=== PATIENT | male | born 1980 | race Caucasian/White ===

== ENCOUNTER 2016-10-20 13:54 | Emergency (ER) | payer OTHER ==
[2016-10-20 14:23] VITALS: BP 118/64; PULSE 72; TEMP 98.3; BMI 25.8
--- NOTE | 2016-10-20 14:26 | PDOC ---
Rapid Medical Evaluation Time Seen by Provider: 10/20/16 14:19 Medical Evaluation: Allergies Allergy/AdvReac Type Severity Reaction Status Date / Time No Known Allergies Allergy Verified 10/19/16 22:11 10/20/16 14:19 I have performed a brief in-person evaluation of this patient. Mr. Apodaca is a 36 yo M with a history of bipolar d/o and seizures who presents to the ER via EMS with a complaint of constipation. Last bowel movement 1 week ago. He tells me that he took a laxative which did not help. Denies pain initially but then said he called the ambulance because he started having pain? Currently he has no pain. Pt states this has not happened to him before. He has not changed his medications. He has not been drinking water. Pt has had no abdominal surgeries (had something removed from the skin on his left abdomen) Pertinent physical exam findings: Abd soft, non distended, non tender to palpation The patient will proceed to [facility] for further evaluation. 10/20/16 14:27
--- NOTE | 2016-10-20 15:51 | PDOC ---
History of Present Illness - General Chief Complaint: Constipation Stated Complaint: CONSTIPATION Time Seen by Provider: 10/20/16 14:19 History Source: Patient Exam Limitations: No Limitations - History of Present Illness Initial Comments: 10/20/16 15:46 Patient is well-known to this emergency department as he has had 2 previous admissions in the past 3 days for multiple complaints. Yesterday he was thoroughly evaluated for complaints of constipation found to have no stool in his abdomen per radiology, and also PCP positive with tox screen. Patient came back today to emergency department with complaints of constipation. Denies fever , nausea vomiting, denies any problems with urination. Admits to being homeless , and was kicked out of his house by his parents past week. Admits to use of PCP 1 week ago but denies any further drug use. is bipolar and reports the Depakote is what he uses for his medications, otherwise is not taking any other psychiatric medications. With further evaluation and discussion about lifestyle and living arrangements, is currently staying with his girlfriend which she has available to stay with currently. has not been eating well, and not drinking enough water. Occurred: reports: yesterday Severity: reports: mild, moderate Past History - Travel Traveled outside of the country in the last 30 days: No Close contact w/someone who was outside of country & ill: No - Past Medical History Allergies/Adverse Reactions: Allergies Allergy/AdvReac Type Severity Reaction Status Date / Time No Known Allergies Allergy Verified 10/20/16 14:23 Home Medications: Ambulatory Orders Divalproex *ER* [Depakote *ER* -] 500 mg PO BID 06/18/16 Psychiatric Problems: Yes (bipolar depression) Seizures: Yes - Surgical History Abdominal Surgery: No (GROWTH REMOVED) - Immunization History Immunization Up to Date: Yes - Psycho/Social/Smoking Cessation Hx Anxiety: No Suicidal Ideation: No Smoking Status: Yes Smoking History: Never smoked Have you smoked in the past 12 months: Yes Number of Cigarettes Smoked Daily: 1 Cigars Per Day: 0 Information on smoking cessation initiated: No 'Breaking Loose' booklet given: 10/14/16 Hx Alcohol Use: No Drug/Substance Use Hx: No Substance Use Type: None, Marijuana Hx Substance Use Treatment: No Review of Systems - Review of Systems Able to Perform ROS?: Yes Is the patient limited Japanese proficient: Yes Constitutional: Yes: Symptoms Reported, See HPI, Malaise. No: Fever, Loss of Appetite, Weakness HEENTM: No: Symptoms Reported Respiratory: No: Symptoms reported ABD/GI: Yes: Symptoms Reported, See HPI, Constipated : No: Symptoms Reported Integumentary: Yes: Symptoms Reported All Other Systems: Reviewed and Negative *Physical Exam - Vital Signs Last Vital Signs Temp Pulse Resp BP Pulse Ox 98.3 F 72 16 118/64 98 10/20/16 14:19 10/20/16 14:19 10/20/16 14:19 10/20/16 14:19 10/20/16 14:19 - Physical Exam General Appearance: Yes: Nourished, Appropriately Dressed. No: Apparent Distress HEENT: positive: ARTHUR, Normal ENT Inspection, TMs Normal, Pharynx Normal Neck: positive: Supple. negative: Lymphadenopathy (R), Lymphadenopathy (L) Respiratory/Chest: positive: Lungs Clear, Normal Breath Sounds Gastrointestinal/Abdominal: positive: Normal Bowel Sounds, Soft. negative: Tender, Protuberent, Distended, Guarding, Rebound Extremity: positive: Normal Capillary Refill, Normal Inspection, Normal Range of Motion Integumentary: positive: Normal Color, Dry, Warm Neurologic: positive: improvement leader II-XII NML intact, Fully Oriented, Alert, Normal Mood/ Affect, Normal Response, Motor Strength 5/5 Progress Note - Progress Note Progress Note: With further discussion patient admits with appreciate assistance with home arrangements and transport to his girlfriend's house. call worker person Emma, notified woke him to discuss prison possibilities with patient. Will discharge patient with fleets enema, encouragement to increase fluid and fiber in his diet and follow-up with PMD *DC/Admit/Observation/Transfer Diagnosis at time of Disposition: Patient left before treatment completed Constipation Qualifiers: Constipation type: unspecified constipation type Qualified Code(s): K59.00 - Constipation, unspecified - Discharge Dispostion Disposition: HOME Condition at time of disposition: Stable Admit: No - Patient Instructions Additional Instructions: Rest, drink lots of fluids May continue use of mild laxative Follow-up with private physician as needed
== END 2016-10-20 16:34 | disposition left against medical advice (07) ==
LOC: JERFT 13:54
DX: K59.00 Constipation, unspecified (principal); Z53.21 Procedure and treatment not carried out due to patient leaving prior to being seen by health care provider; F31.9 Bipolar disorder, unspecified; F17.210 Nicotine dependence, cigarettes, uncomplicated
CPT/HCPCS: 99281-25

== ENCOUNTER 2016-12-19 15:18 | Emergency (ER) | payer OTHER ==
[2016-12-19 15:41] VITALS: BP 111/68; PULSE 76; TEMP 98.6; BMI 25.8
--- NOTE | 2016-12-19 15:51 | PDOC ---
History of Present Illness - General History Source: Patient Exam Limitations: No Limitations - History of Present Illness Initial Comments: CHIEF COMPLAINT: HISTORY OF PRESENT ILLNESS: Vital signs on arrival are within normal limits. REVIEW OF SYSTEMS: GENERAL/CONSTITUTIONAL: Subjective fever/chills. No weakness. No weight change. GENITOURINARY: No dysuria, frequency, or change in urination. MUSCULOSKELETAL: No joint or muscle swelling or pain. No neck or back pain. SKIN: No rash or easy bruising. NEUROLOGIC: No headache, vertigo, loss of consciousness, or loss of sensation. PHYSICAL EXAM: VITAL_SIGNS: within normal limits GENERAL_APPEARANCE: alert, cooperative, mild obvious discomfort. MENTAL_STATUS: speech clear, oriented X 3, responds appropriately to questions. NEURO: motor intact and sensory intact in injured extremity. EXTREMITIES: good pulse in injured extremity, affected area on extremity has mild erythema, mild swelling, mild tenderness and no abrasions\lacerations. SKIN: warm, dry, good color. <Emily Blanchard - Last Filed: 12/19/16 15:49> - General History Source: Patient Exam Limitations: No Limitations - History of Present Illness Initial Comments: 12/19/16 16:08 <Kourtney Rolle - Last Filed: 12/19/16 17:00> - General Chief Complaint: Injury Stated Complaint: INJURY/ POSSIBLE INFECTED Time Seen by Provider: 12/19/16 15:48 Past History - Past Medical History Psychiatric Problems: Yes (bipolar depression) Seizures: Yes - Surgical History Abdominal Surgery: Yes (GROWTH REMOVED) - Immunization History Immunization Up to Date: Yes - Psycho/Social/Smoking Cessation Hx Anxiety: No Suicidal Ideation: No Smoking Status: Yes Smoking History: Current every day smoker Have you smoked in the past 12 months: Yes Number of Cigarettes Smoked Daily: 5 Cigars Per Day: 0 Information on smoking cessation initiated: No 'Breaking Loose' booklet given: 10/14/16 Hx Alcohol Use: No Drug/Substance Use Hx: No Substance Use Type: None, Marijuana Hx Substance Use Treatment: No <Emily Blanchard - Last Filed: 12/19/16 15:49> <Kourtney Rolle - Last Filed: 12/19/16 17:00> - Past Medical History Allergies/Adverse Reactions: Allergies Allergy/AdvReac Type Severity Reaction Status Date / Time No Known Allergies Allergy Verified 12/19/16 15:37 Home Medications: Ambulatory Orders NK [No Known Home Medication] 12/19/16 *Physical Exam - Vital Signs Last Vital Signs Temp Pulse Resp BP Pulse Ox 98.6 F 76 19 111/68 97 12/19/16 15:37 12/19/16 15:37 12/19/16 15:37 12/19/16 15:37 12/19/16 15:37 <Emily Blanchard - Last Filed: 12/19/16 15:49> - Vital Signs Last Vital Signs Temp Pulse Resp BP Pulse Ox 98.6 F 76 19 111/68 97 12/19/16 15:37 12/19/16 15:37 12/19/16 15:37 12/19/16 15:37 12/19/16 15:37 - Physical Exam General Appearance: Yes: Nourished, Appropriately Dressed, Apparent Distress, Mild Distress HEENT: positive: ARTHUR, Normal ENT Inspection, TMs Normal, Pharynx Normal Neck: positive: Supple. negative: Tender Respiratory/Chest: positive: Lungs Clear Gastrointestinal/Abdominal: positive: Tender, Soft Musculoskeletal: negative: Normal Inspection Extremity: positive: Normal Capillary Refill, Normal Range of Motion ( tenderness to snuffbox, ) Integumentary: positive: Normal Color, Warm, Other (superficial abrasion to thenar eminance ) Neurologic: positive: coagulant dipper II-XII NML intact, Fully Oriented, Alert, Normal Mood/ Affect, Normal Response, Motor Strength 5/5 <Kourtney Rolle - Last Filed: 12/19/16 17:00> Progress Note - Progress Note Progress Note: Wrist sprain, Ortho-Glass splint placed in thumb spica secondary to snuffbox pain and will follow-up with orthopedist <Kourtney Rolle - Last Filed: 12/19/16 17:00> Medical Decision Making - Medical Decision Making A/P: <Emily Blanchard - Last Filed: 12/19/16 15:49> *DC/Admit/Observation/Transfer <Emily Blanchard - Last Filed: 12/19/16 15:49> - Discharge Dispostion Admit: No <Kourtney Rolle - Last Filed: 12/19/16 17:00> Diagnosis at time of Disposition: Sprain of hand, left Qualifiers: Encounter type: initial encounter Qualified Code(s): S63.92XA - Sprain of unspecified part of left wrist and hand, initial encounter - Discharge Dispostion Disposition: HOME Condition at time of disposition: Stable - Referrals Referrals: Jc Jang [Primary Care Provider] - Karthik Merrill MD [Staff Physician] - - Patient Instructions Printed Discharge Instructions: Wrist Sprain Additional Instructions: rest, Elevate, Ice to area to reduce swelling Sling to keep elevated Ibuprofen 2 tabs every 6 hours for pain and swelling Call and make appointment with ORTHOPEDIST this week for re-evaluation. - Post Discharge Activity Work/School Note: Back to Work
== END 2016-12-19 17:05 | disposition home or self-care (01) ==
LOC: JERFT 15:18
PROC: 2W3FX1Z Immobilization of Left Hand using Splint (ICD-10-PCS; principal; 2016-12-19)
DX: S63.8X2A Sprain of other part of left wrist and hand, initial encounter (principal); F31.9 Bipolar disorder, unspecified; W19.XXXA Unspecified fall, initial encounter; Y93.89 Activity, other specified; Y92.89 Other specified places as the place of occurrence of the external cause
CPT/HCPCS: 29125; 73130-TC-LT; 99282-25

== ENCOUNTER 2017-02-15 11:55 | Inpatient (IN) | payer OTHER ==
[2017-02-15 15:34] VITALS: BMI 24.3
--- NOTE | 2017-02-15 16:18 | HP ---
Admission ROS S - [facility] Chief Complaint: i need help to come in for rehab from [facility] marijuana Allergies/Adverse Reactions: Allergies Allergy/AdvReac Type Severity Reaction Status Date / Time No Known Allergies Allergy Verified 02/15/17 16:10 History of Present Illness: this 37 years old male with pcp and marijuana dependence,seeking rehab,last treatment in [place] 8 years ago nicotine dependence seizure disorder last 11/22 bipolar disorder no significant period of sobriety asthma Exam Limitations: No Limitations - Ebola screening Have you traveled outside of the country in the last 21 days: No Have you had contact with anyone from an Ebola affected area: No Have you been sick,other than usual withdrawal symptoms: No - Review of Systems Constitutional: No Symptoms Reported EENT: reports: No Symptoms Reported Respiratory: reports: No Symptoms reported, Other (asthma) Cardiac: reports: No Symptoms Reported GI: reports: No Symptoms Reported : reports: No Symptoms Reported Musculoskeletal: reports: No Symptoms Reported Integumentary: reports: No Symptoms Reported Neuro: reports: No Symptoms reported Endocrine: reports: No Symptoms Reported Hematology: reports: No Symptoms Reported Psychiatric: reports: Judgement Intact, Anxious, Depressed Patient History - Patient Medical History Hx Anemia: No Hx Asthma: Yes (on albuterol inhaler) Hx Chronic Obstructive Pulmonary Disease (COPD): No Hx Cancer: No Hx Cardiac Disorders: No Hx Congestive Heart Failure: No Hx Hypertension: No Hx Hypercholesterolemia: No Hx Pacemaker: No HX Cerebrovascular Accident: No Hx Seizures: Yes (last 11/22) Hx Dementia: No Hx Diabetes: No Hx Gastrointestinal Disorders: No Hx Liver Disease: No Hx Genitourinary Disorders: No Hx Sexually Transmitted Disorders: No Hx Renal Disease (ESRD): No Hx Thyroid Disease: No Hx Human Immunodeficiency Virus (HIV): No (last 09/24) Hx Hepatitis C: No Hx Depression: No Hx Suicide Attempt: No Hx Bipolar Disorder: No Hx Schizophrenia: No Other Medical History: no suicidal,no homicidal - Patient Surgical History Hx Abdominal Surgery: Yes (GROWTH REMOVED left lumbal are) - PPD History Documented Results: Negative w/o proof Implanted On Prior [facility] Admission?: No PPD to be Administered?: Yes - Smoking Cessation Smoking history: Current every day smoker Have you smoked in the past 12 months: Yes Aproximately how many cigarettes per day: 5 Cigars Per Day: 0 Hx Chewing Tobacco Use: No Initiated information on smoking cessation: Yes 'Breaking Loose' booklet given: 02/15/17 - Substance & Tx. History Hx Alcohol Use: No Hx Substance Use: Yes Substance Use Type: Marijuana Hx Substance Use Treatment: Yes (feroz in 2013) - Substances Abused PCP Route: Smoking Frequency: Daily Amount used: 5 BAGS Age of first use: 12 Date of Last Use: 02/14/17 Marijuana/Hashish Route: Smoking Frequency: Daily Amount used: 5 BLUNTS Age of first use: 9 Date of Last Use: 02/12/17 Family Disease History - Family Disease History Family Disease History: Other: Father (alcohol ), Brother (dsa) Admission Physical Exam [facility] - Vital Signs Vital Signs: Vital Signs - 24 hr 02/15/17 15:28 Temperature 97.1 F L Pulse Rate 60 Respiratory 20 Rate Blood Pressure 132/72 - Physical General Appearance: Yes: Within Normal Limits HEENTM: Yes: Within Normal Limits, Hearing grossly Normal, Normal ENT Inspection Respiratory: Yes: Lungs Clear, Normal Breath Sounds, No Respiratory Distress Neck: Yes: Within Normal Limits Breast: Yes: Within Normal Limits Cardiology: Yes: Within Normal Limits, Regular Rhythm, Regular Rate, S1, S2 Abdominal: Yes: Within Normal Limits, Normal Bowel Sounds, Non Tender, Flat, Soft Genitourinary: Yes: Within Normal Limits Back: Yes: Within Normal Limits Musculoskeletal: Yes: Within Normal Limits Extremities: Yes: Within Normal Limits Neurological: Yes: Within Normal Limits, counseling center director II-XII NML intact, Fully Oriented, Alert, Motor Strength 5/5 Integumentary: Yes: Within Normal Limits Lymphatic: Yes: Within Normal Limits - Diagnostic (1) Cannabis dependence Current Visit: Yes Status: Acute (2) PCP abuse Current Visit: Yes Status: Acute (3) Seizure disorder Current Visit: Yes Status: Acute (4) Seizure Current Visit: No Status: Acute (5) Asthma Current Visit: Yes Status: Acute (6) Nicotine dependence Current Visit: Yes Status: Acute Cleared for Admission [facility] - Detox or Rehab Claeared for Rehab Admission: Yes [facility] Breath Alcohol Content Breath Alcohol Content: 0 Urine Drug Screen - Results Drug Screen Negative: No Urine Drug Screen Results: THC-Marijuana, PCP-Phencyclidine
[2017-02-15] MEDS ORDERED: MAG HYDROX/AL HYDROX/SIMETH 30 ML UNIT-DOSE CUP PO PRN (16:27)
[2017-02-15] MEDS ORDERED: MAGNESIUM HYDROX 2400MG/30ML ORAL SUSPENSION 30 ML CUP PO PRN (16:27)
[2017-02-15] MEDS ORDERED: P-EPHED 60MG/TRIPROLIDI 2.5MG TABLET PO PRN (16:27)
[2017-02-15] MEDS ORDERED: ACETAMINOPHEN 325 MG TABLET (FP) PO PRN (16:27)
[2017-02-15] MEDS ORDERED: guaiFENesin/D-METHORPHAN HB 10 ML UNIT-DOSE CUPS PO PRN (16:27)
[2017-02-15] MEDS ORDERED: MENTHOL/PHENOL 1 EACH UD MM PRN (16:27)
[2017-02-15] MEDS ORDERED: LOPERAMIDE HCL 2 MG CAPSULE PO PRN (16:27)
[2017-02-15] MEDS ORDERED: diphenhydrAMINE HCL 50 MG CAPSULE PO PRN (16:27)
[2017-02-15] MEDS ORDERED: MAGNESIUM CITRATE 300 ML BOTTLE PO PRN (16:27)
[2017-02-15] MEDS ORDERED: IBUPROFEN 400 MG TABLET (FP) PO PRN (16:27)
[2017-02-15] MEDS ORDERED: hydrOXYzine PAMOATE 50 MG CAPSULE (FP) PO PRN (16:27)
[2017-02-15] MEDS ORDERED: NICOTINE 21 MG/24 HOURS TOPICAL PATCH TD SCH (17:30)
[2017-02-15] MEDS ORDERED: DIVALPROEX NA *ER* EXTEND REL 500 MG TABLET.SA (FP) PO SCH (22:00)
[2017-02-15] MEDS ORDERED: THIAMINE HCL 100 MG TABLET (FP) PO SCH (22:00)
[2017-02-16] MEDS ORDERED: ALBUTEROL SO4 6.7 GM HFA INHALER IH ONE (02:34)
[2017-02-16] MEDS ORDERED: ALBUTEROL SO4 2.5/IPRATROPIUM 0.5 INH SOL 3 ML VIAL.NEB. NEB PRN (02:50)
[2017-02-16] MEDS ORDERED: ALBUTEROL SO4 6.7 GM HFA INHALER IH PRN (02:50)
--- NOTE | 2017-02-16 03:00 | PN ---
[facility] Progress Note Note: [facility]WMILL OR [employer]BER YARD WORKER CALLED TO THE FLOOR TO ASSESS THE PATIENT. NURSE REPORTED THE PT. HAS BEEN WALKING AROUND ON THE FLOOR, YELLING AND REQUESTING TO GO HOME. CLIENT WAS ALSO COMPLAINING THAT HE WAS UNABLE TO BREATH BUT NO SIGNS OF RESPIRATORY DISTRESS WERE NOTED, AND VSS (SAO2=98 ON ROOM AIR). THE CLIENT SEEMED CONFUSED AND DROWSY. WHILE AMBULATING THE PT HAD TO BE GUIDED TO HIS ROOM BECAUSE HE WAS LOSING HIS BALANCE AND ALMOST FELL TWICE. DR. MORGAN WAS NOTIFIED AND HE RECOMMENDED HALDOL. PLAN: 1:1 5MG PO OF HALDOL STAT LABS: [facility] ACID LEVELS FALL PRECAUTIONS
[2017-02-16] MEDS ORDERED: HALOPERIDOL 5 MG TABLET (FP) PO SCH (03:15)
[2017-02-16 03:19] VITALS: BP 128/74; PULSE 69; TEMP 96
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
[2017-02-16] MEDS ORDERED: PRENATAL VITAMINS W/ FOLIC ACID TABLET (FP) PO SCH (10:00)
--- NOTE | 2017-02-17 16:06 | EKG ---
Test Reason : Blood Pressure : / mmHG Vent. Rate : 053 BPM Atrial Rate : 053 BPM P-R Int : 162 ms QRS Dur : 098 ms QT Int : 444 ms P-R-T Axes : 059 072 039 degrees QTc Int : 416 ms SINUS BRADYCARDIA OTHERWISE NORMAL ECG WHEN COMPARED WITH ECG OF 19-OCT-2016 22:13, NO SIGNIFICANT CHANGE WAS FOUND Confirmed by CRISTAL WALDEN MD ([id number]) on 02/17/2017 4:05:39 PM Referred By: Confirmed By:CRISTAL WALDEN MD
== END 2017-02-16 03:56 | disposition short-term general hospital (02) | DRG 772 ==
LOC: YASAS 11:55 → Y5N 16:31
PROVIDERS: ADMIT Psychiatry & Neurology Psychiatry; ATTEND Psychiatry & Neurology Psychiatry
PROC: HZ42ZZZ Group Counseling for Substance Abuse Treatment, Cognitive-Behavioral (ICD-10-PCS; principal; 2017-02-16)
DX: F12.20 Cannabis dependence, uncomplicated (principal); F17.210 Nicotine dependence, cigarettes, uncomplicated; F16.10 Hallucinogen abuse, uncomplicated; G40.909 Epilepsy, unspecified, not intractable, without status epilepticus; J45.909 Unspecified asthma, uncomplicated
CPT/HCPCS: 93005; 93010

== ENCOUNTER 2017-07-29 04:07 | Emergency (ER) | payer OTHER ==
[2017-07-29 04:24] VITALS: BMI 25.8
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
[2017-07-29 05:07] LABS: URINE APPEARANCE CLOUDY; URINE BILIRUBIN NEGATIVE (NEGATIVE); URINE BLOOD 3+ (NEGATIVE); URINE GLUCOSE (UA) NEGATIVE (NEGATIVE); URINE KETONE NEGATIVE (NEGATIVE); URINE LEUK ESTERASE NEGATIVE (NEGATIVE); URINE NITRITE NEGATIVE (NEGATIVE); URINE UROBILINOGEN NEGATIVE mg/dL (0.2-1.0)
[2017-07-29 05:09] LABS: URINE COLOR BROWN; URINE PROTEIN 2+ (NEGATIVE)
[2017-07-29 05:11] LABS: URINE BACTERIA MODERATE /hpf (NONE SEEN); URINE MUCUS MANY; URINE RBC 2640 /hpf (0-3); URINE WBC 7 /hpf (3-5)
[2017-07-29 09:00] VITALS: BP 94/60; PULSE 52; TEMP 98.2
[2017-07-29 11:07] LABS: BASO # 0.1 # (0.1-1); BASO % 0.9 % (0-2.0); EOS # 0.2 # (0-4.5); EOS % 2.5 % (0-4.5); LYMPH # 2.1 (8-40); MCH 29.6 pg (25.7-33.7); MCHC 32.6 g/dl (32.0-35.9); MEAN CELL VOLUME 90.8 fl (80-96); MEAN PLT VOLUME 8.2 fl (7.5-11.1); MONO # 0.6 # (3.8-10.2); NEUT # 3.9 # (42.8-82.8); NEUT % 56.7 % (42.8-82.8); PLATELET COUNT 206 K/MM3 (134-434); RDW 13.9 % (11.9-15.9); WHITE BLOOD COUNT 6.9 K/mm3 (4.0-10.0)
[2017-07-29 11:45] LABS: INR 1.04 (0.82-1.09); PROTHROMBIN TIME (PATIENT) 11.8 SEC (9.98-11.88)
[2017-07-29 11:46] LABS: ALBUMIN 3.7 g/dl (3.4-5.0); ALK PHOS 61 U/L (45-117); ANION GAP 6 (8-16); BILIRUBIN,TOTAL 0.8 mg/dL (0.2-1.0); CALCIUM 8.8 mg/dL (8.5-10.1); CO2 27 mmol/L (21-32); CREATININE 0.7 mg/dL (0.7-1.3); GLUCOSE,RANDOM 95 mg/dL (74-106); SGOT/AST 14 U/L (15-37); SGPT/ALT 22 U/L (12-78); TOT PROT 6.4 g/dl (6.4-8.2)
[2017-07-29 11:48] LABS: ACTIVATED PTT 32.1 SECONDS (26.9-34.4)
[2017-07-29 12:19] LABS: YEAST MANY
[2017-07-29] MEDS ORDERED: CIPROFLOXACIN 500 MG TABLET (RESTRICTED TO ID) PO ONE (12:37)
--- NOTE | 2017-07-29 12:39 | PDOC ---
*Physical Exam - Vital Signs Last Vital Signs Temp Pulse Resp BP Pulse Ox 98.2 F 52 L 14 94/60 98 07/29/17 08:15 07/29/17 08:15 07/29/17 08:15 07/29/17 08:15 07/29/17 04:19 ED Treatment Course - LABORATORY CBC & Chemistry Diagram: 07/29/17 11:00 07/29/17 11:00 - ADDITIONAL ORDERS Additional order review: Laboratory Results 07/29/17 07/29/17 11:00 04:38 Sodium 140 Potassium 4.0 Chloride 107 Carbon Dioxide 27 Anion Gap 6 L BUN 12 Creatinine 0.7 Creat Clearance w eGFR > 60 Random Glucose 95 D Calcium 8.8 Total Bilirubin 0.8 AST 14 L ALT 22 D Alkaline Phosphatase 61 Total Protein 6.4 Albumin 3.7 Urine Color Brown Urine Appearance Cloudy Urine pH 5.0 Ur Specific [place] 1.034 Urine Protein 2+ H Urine Glucose (UA) Negative Urine Ketones Negative Urine Blood 3+ H Urine Nitrite Negative Urine Bilirubin Negative Urine Urobilinogen Negative Ur Leukocyte Esterase Urine WBC (Auto) 7 Urine RBC (Auto) 2640 Ur Epithelial Cells Few Urine Bacteria Moderate Urine Mucus Many Urine Yeast Many 07/29/17 11:00 RBC 4.62 MCV 90.8 MCHC 32.6 RDW 13.9 MPV 8.2 Neutrophils % 56.7 Lymphocytes % 31.0 Monocytes % 8.9 Eosinophils % 2.5 Basophils % 0.9 D Medical Decision Making - Medical Decision Making 07/29/17 12:34 Sign-out received from outgoing Emergency Physician Dr. Payton Pt interviewed and examined Ancillary studies reviewed Case discussed in detail with oncoming Emergency Physician including history, physical exam and ancillary studies. CBC, BMP 07/29/17 11:00 07/29/17 11:00 CMP Sodium 140 mmol/L (136-145) 07/29/17 11:00 Potassium 4.0 mmol/L (3.5-5.1) 07/29/17 11:00 Chloride 107 mmol/L (98-107) 07/29/17 11:00 Carbon Dioxide 27 mmol/L (21-32) 07/29/17 11:00 Anion Gap 6 (8-16) L 07/29/17 11:00 BUN 12 mg/dL (7-18) 07/29/17 11:00 Creatinine 0.7 mg/dL (0.7-1.3) 07/29/17 11:00 Creat Clearance w eGFR > 60 (>60) 07/29/17 11:00 Random Glucose 95 mg/dL (74-106) D 07/29/17 11:00 Calcium 8.8 mg/dL (8.5-10.1) 07/29/17 11:00 Total Bilirubin 0.8 mg/dL (0.2-1.0) 07/29/17 11:00 AST 14 U/L (15-37) L 07/29/17 11:00 ALT 22 U/L (12-78) D 07/29/17 11:00 Alkaline Phosphatase 61 U/L (45-117) 07/29/17 11:00 Total Protein 6.4 g/dl (6.4-8.2) 07/29/17 11:00 Albumin 3.7 g/dl (3.4-5.0) 07/29/17 11:00 Urine Test Results Urine Color Brown 07/29/17 04:38 Urine Appearance Cloudy 07/29/17 04:38 Urine pH 5.0 (5.0-8.0) 07/29/17 04:38 Ur Specific [place] 1.034 (1.001-1.035) 07/29/17 04:38 Urine Protein 2+ (NEGATIVE) H 07/29/17 04:38 Urine Glucose (UA) Negative (NEGATIVE) 07/29/17 04:38 Urine Ketones Negative (NEGATIVE) 07/29/17 04:38 Urine Blood 3+ (NEGATIVE) H 07/29/17 04:38 Urine Nitrite Negative (NEGATIVE) 07/29/17 04:38 Urine Bilirubin Negative (NEGATIVE) 07/29/17 04:38 Ur Leukocyte Esterase (NEGATIVE) 07/29/17 04:38 Ur Epithelial Cells Few /HPF (FEW) 07/29/17 04:38 Urine Bacteria Moderate /hpf (NONE SEEN) 07/29/17 04:38 Urine Mucus Many 07/29/17 04:38 07/29/17 12:34 CAT scan the abdomen pelvis demonstrates no acute findings. However, given the hematuria, and I discussed the case with both Dr. Allred and Dr. Miles. The both agree that the patient can be follow-up as an outpatient. Dr. Miles requests to start patient on ciprofloxacin and have him follow up with Dr. Jang on Tuesday for further outpatient workup for hematuria. The patient is agreeable to the plan and states that he he will follow-up with his doctors. I discussed the physical exam findings, ancillary test results and final diagnoses with the patient. I answered all of the patient's questions. The patient was satisfied with the care received and felt comfortable with the discharge plan and treatment plan. The patient will call their primary care physician within 24 hours to arrange follow-up and will return to the Emergency Department with any new, persistant or worsening symptoms. 07/29/17 12:[address] Allred is here in the ED and saw the patient. *DC/Admit/Observation/Transfer Diagnosis at time of Disposition: Hematuria Qualifiers: Hematuria type: unspecified type Qualified Code(s): R31.9 - Hematuria, unspecified - Discharge Dispostion Disposition: HOME Condition at time of disposition: Stable Admit: No - Prescriptions Prescriptions: Ciprofloxacin [Cipro -] 500 mg PO Q12H #10 tablet - Referrals Referrals: Jc Jang [Primary Care Provider] - Narinder Allred MD [Staff Physician] - - Patient Instructions Printed Discharge Instructions: DI for Hematuria Additional Instructions: Your urine has blood in it. However, your kidney function is normal. It is important that you follow-up with your regular doctor, Dr. Jang, this upcoming Tuesday. Please take the antibiotics, ciprofloxacin every 12 hours for next 5 days. Drink plenty of water and rest. If you start develop uncontrollable pain or worsening bleeding, cardiac doctor or return to the ER. Your CAT scan demonstrates no acute findings. - Post Discharge Activity
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
== END 2017-07-29 12:41 | disposition home or self-care (01) ==
LOC: JER 04:07
DX: R31.9 Hematuria, unspecified (principal); F31.9 Bipolar disorder, unspecified; G40.909 Epilepsy, unspecified, not intractable, without status epilepticus; F17.210 Nicotine dependence, cigarettes, uncomplicated
CPT/HCPCS: 36415; 70450-TC; 70486-TC; 74176; 80053; 81003; 81015; 85025; 85610; 85730; 87086; 99283-25

== ENCOUNTER 2017-08-16 16:51 | Emergency (ER) | payer OTHER ==
[2017-08-16 16:59] VITALS: BP 113/75; PULSE 84; TEMP 98.5; BMI 25.0
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
[2017-08-16] MEDS ORDERED: DIVALPROEX SODIUM 500 MG TABLET E.C. PO ONE (17:47)
== END 2017-08-16 18:01 | disposition home or self-care (01) ==
LOC: JER 16:51
DX: G40.909 Epilepsy, unspecified, not intractable, without status epilepticus (principal); W18.39XA Other fall on same level, initial encounter; Y93.89 Activity, other specified; Y92.89 Other specified places as the place of occurrence of the external cause; Y99.8 Other external cause status
CPT/HCPCS: 99282-25

== ENCOUNTER 2017-10-22 23:58 | Emergency (ER) | payer OTHER ==
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
[2017-10-23] MEDS ORDERED: DIVALPROEX SODIUM 500 MG TABLET E.C. PO ONE (00:19)
[2017-10-23] MEDS ORDERED: ACETAMINOPHEN 325 MG TABLET (FP) PO ONE (00:19)
[2017-10-23 00:22] VITALS: BP 135/87; PULSE 91; TEMP 98.5; BMI 26.3
[2017-10-23] MEDS ORDERED: DIVALPROEX SODIUM 500 MG TABLET E.C. ONE (00:25)
[2017-10-23] MEDS ORDERED: ACETAMINOPHEN 325 MG TABLET (FP) ONE (00:25)
[2017-10-23 00:43] LABS: URINE APPEARANCE CLEAR; URINE BILIRUBIN NEGATIVE (NEGATIVE); URINE BLOOD NEGATIVE (NEGATIVE); URINE COLOR YELLOW; URINE GLUCOSE (UA) NEGATIVE (NEGATIVE); URINE KETONE TRACE (NEGATIVE); URINE LEUK ESTERASE NEGATIVE (NEGATIVE); URINE NITRITE NEGATIVE (NEGATIVE); URINE PROTEIN NEGATIVE (NEGATIVE)
[2017-10-23] MEDS ORDERED: LIDOCAINE HCL 2% (20ML MULTI-DOSE VIAL) NR ONE (01:16)
[2017-10-23] MEDS ORDERED: AMOXICILLIN 500 MG CAPSULE (FP) PO ONE (01:55)
[2017-10-23] MEDS ORDERED: AMOX TR/POT CLAV 500MG/125MG TABLETS (FP) ONE (02:08)
== END 2017-10-23 02:35 | disposition home or self-care (01) ==
LOC: JER 23:58
PROC: 0CQ03ZZ Repair Upper Lip, Percutaneous Approach (ICD-10-PCS; principal; 2017-10-22)
DX: S01.511A Laceration without foreign body of lip, initial encounter (principal); S89.82XA Other specified injuries of left lower leg, initial encounter; S50.12XA Contusion of left forearm, initial encounter; Y00.XXXA Assault by blunt object, initial encounter; Y93.89 Activity, other specified; Y92.414 Local residential or business street as the place of occurrence of the external cause; Y99.8 Other external cause status; J45.909 Unspecified asthma, uncomplicated; G40.909 Epilepsy, unspecified, not intractable, without status epilepticus; F31.9 Bipolar disorder, unspecified
CPT/HCPCS: 12011; 70450-TC; 70486-TC; 73560-TC-LT-FY; 74176-TC; 81003; 99281-25

== ENCOUNTER 2018-06-01 05:04 | Emergency (ER) | payer OTHER ==
[2018-06-01] MEDS ORDERED: SODIUM CHLORIDE 1,000 ML IV ONE (05:47)
[2018-06-01] MEDS ORDERED: DIVALPROEX SODIUM 500 MG TABLET E.C. PO ONE (05:48)
[2018-06-01] MEDS ORDERED: ONDANSETRON 4 MG/2 ML VIAL IVPUSH ONE (05:53)
--- NOTE | 2018-06-01 05:55 | PDOC ---
ED Treatment Course - LABORATORY CBC & Chemistry Diagram: 06/01/18 07:38 06/01/18 07:38 Medical Decision Making - Medical Decision Making 06/01/18 05:55 38 yo M h/o seizure d/o medication non compliance presening to the ER s/p seizure as witnessed by room mate No fevers or chills Pt is currently at his baseline, does have some twitching Pt seen by Midlevel Provider under my direct supervision Pt interviewed and examined CT and labs pending Pt hypotensive on initial vital signs, will give IVF I agree with plan as outlined by Midlevel Provider Signed out to JORGE Barry and Dr Brown 06/01/18 23:16 *DC/Admit/Observation/Transfer Diagnosis at time of Disposition: Seizure disorder, Seizure - Discharge Dispostion Disposition: HOME Condition at time of disposition: Stable - Referrals Referrals: Jc Jang [Primary Care Provider] - 1 week (as well as your neurologist) - Patient Instructions Printed Discharge Instructions: DI for Seizure Disorder -- Adult Additional Instructions: Take your Depakote as prescribed Follow up with your neurologist as scheduled next week Return for fevers, repeated seizure episodes, or any other concerning symptoms - Post Discharge Activity
[2018-06-01 06:08] VITALS: BMI 28.2
--- NOTE | 2018-06-01 06:14 | PDOC ---
History of Present Illness - General Chief Complaint: Seizure Stated Complaint: SEIZURE Time Seen by Provider: 06/01/18 05:37 History Source: Patient - History of Present Illness Initial Comments: 06/01/18 06:39 38 year old male c/o seizure activity with generalized shaking witnessed by navi mcgowan. as per patient he has a history of seizure on depakote 500 mg bid, noncompliance since january. denies incontinence of bowel and urine. denies drug use/ alcohol use. patient alert unsteady gait. nomorcephalic. patient reports generalized abdominal 06/01/18 06:55 06/01/18 06:57 Past History - Past Medical History Allergies/Adverse Reactions: Allergies Allergy/AdvReac Type Severity Reaction Status Date / Time No Known Allergies Allergy Verified 08/16/17 16:59 Home Medications: Ambulatory Orders Divalproex *ER* [Depakote *ER* -] 500 mg PO BID 02/15/17 Anemia: No Asthma: Yes (on albuterol inhaler) Cancer: No Cardiac Disorders: No CVA: No COPD: No CHF: No Dementia: No Diabetes: No GI Disorders: No Disorders: No HTN: No Hypercholesterolemia: No Kidney Stones: No Liver Disease: No Psychiatric Problems: Yes (bipolar depression) Seizures: Yes (last 11/22) Thyroid Disease: No - Surgical History Abdominal Surgery: Yes (GROWTH REMOVED left lumbal are) - Reproductive History Testicular Surgery: No - Immunization History Immunization Up to Date: Yes - Suicide/Smoking/Psychosocial Hx Smoking Status: Yes Smoking History: Never smoked Have you smoked in the past 12 months: Yes Number of Cigarettes Smoked Daily: 5 Cigars Per Day: 0 'Breaking Loose' booklet given: 02/15/17 Hx Alcohol Use: No Drug/Substance Use Hx: No Substance Use Type: Marijuana Hx Substance Use Treatment: Yes (feroz in 2013) *Physical Exam - Vital Signs 06/01/18 06:56 Last Vital Signs Temp Pulse Resp BP Pulse Ox 98.7 F 81 16 94/77 97 06/01/18 05:05 06/01/18 05:05 06/01/18 05:05 06/01/18 05:05 06/01/18 05:05 - Physical Exam General Appearance: Yes: Appropriately Dressed HEENT: positive: Other (normocephalic) Gastrointestinal/Abdominal: positive: Normal Bowel Sounds, Soft Male Genitalia: positive: normal genitalia. negative: testicular tenderness Musculoskeletal: positive: Normal Inspection Extremity: positive: Normal Inspection, Normal Range of Motion Medical Decision Making - Medical Decision Making 06/01/18 07:02 previous chart reviewed patient has a (PCP and marijuana) use with recent detox visit. 06/01/18 07:03 *DC/Admit/Observation/Transfer Diagnosis at time of Disposition: Seizure disorder - Discharge Dispostion Condition at time of disposition: Fair - Referrals - Patient Instructions - Post Discharge Activity
--- NOTE | 2018-06-01 07:24 | PDOC ---
*Physical Exam - Vital Signs Last Vital Signs Temp Pulse Resp BP Pulse Ox 98.7 F 81 16 94/77 97 06/01/18 05:05 06/01/18 05:05 06/01/18 05:05 06/01/18 05:05 06/01/18 05:05 ED Treatment Course - LABORATORY CBC & Chemistry Diagram: 06/01/18 07:38 06/01/18 07:38 Medical Decision Making - Medical Decision Making 06/01/18 07:21 Patient received from OJRGE Shannon. Briefly, this is a 38-year-old male with a history of seizure disorder who has not been taking his AEDs brought in by roommate following a seizure. Uncertain whether there was head trauma. CT brain is pending. Labs are pending. The patient was given his home dose of depakote. CT head without evidence of traumatic injury. Acute sinusitis. Patient denies inhalation drug use, will treat with Afrin and saline lavage. Patient is feeling well, able to ambulate independently. Labs unremarkable. Has a supply of depakote at home and a neurologist appointment next week. *DC/Admit/Observation/Transfer Diagnosis at time of Disposition: Seizure disorder, Seizure - Discharge Dispostion Disposition: HOME Condition at time of disposition: Stable Decision to Admit order: No - Referrals Referrals: Jc Jang [Primary Care Provider] - 1 week (as well as your neurologist) - Patient Instructions Printed Discharge Instructions: DI for Seizure Disorder -- Adult Additional Instructions: Take your Depakote as prescribed Follow up with your neurologist as scheduled next week Return for fevers, repeated seizure episodes, or any other concerning symptoms - Post Discharge Activity
[2018-06-01] MEDS ORDERED: ONDANSETRON 4 MG/2 ML VIAL ONE (07:49)
[2018-06-01] MEDS ORDERED: DIVALPROEX SODIUM 500 MG TABLET E.C. ONE (07:49)
[2018-06-01 07:51] LABS: BASO % 1.1 % (0-2.0); EOS % 1.9 % (0-4.5); HEMATOCRIT 40.9 % (35.4-49); HEMOGLOBIN 13.8 GM/dL (11.7-16.9); MCHC 33.6 g/dl (32.0-35.9); MEAN CELL VOLUME 89.2 fl (80-96); MEAN PLT VOLUME 7.8 fl (7.5-11.1); MONO % 7.4 % (3.8-10.2); NEUT % 62.6 % (42.8-82.8); PLATELET COUNT 263 K/MM3 (134-434); RBC 4.58 M/mm3 (4.00-5.60); RDW 13.8 % (11.9-15.9); WHITE BLOOD COUNT 8.6 K/mm3 (4.0-10.0)
[2018-06-01 08:03] LABS: INR 0.99 (0.83-1.09); PROTHROMBIN TIME (PATIENT) 11.7 SEC (9.7-13.0)
[2018-06-01 08:18] LABS: ALBUMIN 3.6 g/dl (3.4-5.0); ALK PHOS 73 U/L (45-117); ANION GAP 9 MMOL/L (8-16); BILIRUBIN,TOTAL 0.4 mg/dL (0.2-1); BLOOD UREA NITROGEN 14 mg/dL (7-18); CALCIUM 8.4 mg/dL (8.5-10.1); CHLORIDE 109 mmol/L (98-107); CO2 27 mmol/L (21-32); CREATININE 0.7 mg/dL (0.55-1.3); GLUCOSE,RANDOM 89 mg/dL (74-106); SGOT/AST 16 U/L (15-37); SGPT/ALT 21 U/L (13-61); SODIUM 145 mmol/L (136-145); TOT PROT 6.4 g/dl (6.4-8.2)
[2018-06-01] MEDS ORDERED: OXYMETAZOLINE 0.05% NASAL SOLUTION 15 ML BOTTLE NS ONE (09:54)
[2018-06-01 10:08] LABS: URINE APPEARANCE CLEAR; URINE BILIRUBIN NEGATIVE (<2.0 mg/dL); URINE COLOR LTYELLOW; URINE GLUCOSE (UA) NEGATIVE (NEGATIVE); URINE KETONE TRACE (NEGATIVE); URINE LEUK ESTERASE NEGATIVE (NEGATIVE); URINE NITRITE NEGATIVE (NEGATIVE); URINE PROTEIN NEGATIVE (NEGATIVE); URINE UROBILINOGEN NEGATIVE mg/dL (0.2-1.0)
[2018-06-01 10:22] LABS: COCAINE, UR NEGATIVE ng/ml (CUTOFF=300); METHADONE, UR NEGATIVE ng/ml (CUTOFF=300); OPIATES, URI NEGATIVE ng/ml (CUTOFF=300); URINE AMPHETAMINES NEGATIVE ng/ml (CUTOFF=500); URINE BARBITURATES NEGATIVE ng/ml (CUTOFF=200); URINE BENZODIAZEPINES NEGATIVE ng/ml (CUTOFF=200)
[2018-06-01 10:24] VITALS: BP 110/80; PULSE 52; TEMP 98.1
[2018-06-01 10:31] LABS: PHENCYCLIDINE,URINE POSITIVE ng/ml (CUTOFF=25)
== END 2018-06-01 10:28 | disposition home or self-care (01) ==
LOC: JER 05:04
DX: G40.909 Epilepsy, unspecified, not intractable, without status epilepticus (principal); F31.9 Bipolar disorder, unspecified; Z91.14 Patient's other noncompliance with medication regimen
CPT/HCPCS: 36415; 70450-TC; 71046-TC-FY; 80053; 80307; 81003; 82550; 82553; 84484; 85025; 85610; 86850; 86900; 86901; 99283-25; J7030

== ENCOUNTER 2018-09-09 01:50 | Emergency (ER) | payer OTHER ==
[2018-09-09 02:16] VITALS: BP 114/68; PULSE 70; TEMP 101.3; BMI 27.3
--- NOTE | 2018-09-09 02:29 | PDOC ---
Attending Attestation - Resident Resident Name: Alessandra Campbell - ED Attending Attestation I have performed the following: I have examined & evaluated the patient, The case was reviewed & discussed with the resident, I agree w/resident's findings & plan - HPI HPI: 09/09/18 19:44 Pt had seizure like activity at home that was not witnessed; his brother heard him fall off the couch. Their mom recently and pt is now taking drugs to cope. - Physicial Exam PE: 09/09/18 19:44 Agree with resident exam. Pt and I had a long discussion about coping with stress and the negative effects of drugs as well as smoking cigarettes. Pt was reassured that his labs and exam are normal and that he is ok. - Medical Decision Making 09/09/18 19:45 Pt will be discharged home.
[2018-09-09] MEDS ORDERED: SODIUM CHLORIDE 0.9% 500 ML INFUS.BAG IV ONE (02:43)
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
[2018-09-09] MEDS ORDERED: ACETAMINOPHEN 1000 MG/100 ML VIAL (NON FORMULARY) IVPB ONE (03:22)
[2018-09-09 03:26] LABS: VENOUS PC02 46.5 mmHg (38-52); VENOUS PH 7.39 (7.32-7.42); VENOUS PO2 31.8 mmHg (28-48)
[2018-09-09] MEDS ORDERED: ACETAMINOPHEN INJECTION 100 ML IVPB ONE (03:26)
[2018-09-09 03:32] LABS: BASO % 0.3 % (0-2.0); EOS % 0.2 % (0-4.5); HEMOGLOBIN 14.8 GM/dL (11.7-16.9); LYMPH % 17.2 % (8-40); MCH 31.6 pg (25.7-33.7); MCHC 34.5 g/dl (32.0-35.9); MEAN CELL VOLUME 91.7 fl (80-96); MEAN PLT VOLUME 7.9 fl (7.5-11.1); MONO % 13.5 % (3.8-10.2); NEUT % 68.8 % (42.8-82.8); PLATELET COUNT 174 K/MM3 (134-434); RBC 4.69 M/mm3 (4.00-5.60); RDW 13.9 % (11.9-15.9); WHITE BLOOD COUNT 5.2 K/mm3 (4.0-10.0)
[2018-09-09 03:50] LABS: INR 0.97 (0.83-1.09); PROTHROMBIN TIME (PATIENT) 11.5 SEC (9.7-13.0)
[2018-09-09 03:53] LABS: ACTIVATED PTT 34.7 SECONDS (25.2-36.5)
[2018-09-09 04:24] LABS: ALBUMIN 3.9 g/dl (3.4-5.0); ALK PHOS 68 U/L (45-117); ANION GAP 5 MMOL/L (8-16); BILIRUBIN,TOTAL 0.4 mg/dL (0.2-1); BLOOD UREA NITROGEN 12 mg/dL (7-18); CALCIUM 8.5 mg/dL (8.5-10.1); CHLORIDE 105 mmol/L (98-107); CO2 29 mmol/L (21-32); CREATININE 0.9 mg/dL (0.55-1.3); GLUCOSE,RANDOM 81 mg/dL (74-106); POTASSIUM 3.7 mmol/L (3.5-5.1); SGOT/AST 17 U/L (15-37); SGPT/ALT 21 U/L (13-61); SODIUM 139 mmol/L (136-145); TOT PROT 6.5 g/dl (6.4-8.2)
[2018-09-09 04:36] LABS: URINE APPEARANCE SLCLOUDY; URINE BILIRUBIN NEGATIVE (<2.0 mg/dL); URINE COLOR YELLOW; URINE GLUCOSE (UA) NEGATIVE (NEGATIVE); URINE KETONE NEGATIVE (NEGATIVE); URINE LEUK ESTERASE NEGATIVE (NEGATIVE); URINE NITRITE NEGATIVE (NEGATIVE); URINE PROTEIN NEGATIVE (NEGATIVE); URINE UROBILINOGEN NEGATIVE mg/dL (0.2-1.0)
[2018-09-09 05:05] LABS: COCAINE, UR NEGATIVE ng/ml (CUTOFF=300); OPIATES, URI NEGATIVE ng/ml (CUTOFF=300); URINE AMPHETAMINES NEGATIVE ng/ml (CUTOFF=500); URINE BARBITURATES NEGATIVE ng/ml (CUTOFF=200); URINE BENZODIAZEPINES NEGATIVE ng/ml (CUTOFF=200)
[2018-09-09 05:12] LABS: PHENCYCLIDINE,URINE POSITIVE ng/ml (CUTOFF=25)
[2018-09-09 09:14] LABS: METHADONE, UR NEGATIVE ng/ml (CUTOFF=300)
--- NOTE | 2018-09-09 16:35 | EKG ---
Test Reason : Blood Pressure : / mmHG Vent. Rate : 069 BPM Atrial Rate : 069 BPM P-R Int : 148 ms QRS Dur : 096 ms QT Int : 366 ms P-R-T Axes : 065 089 067 degrees QTc Int : 392 ms NORMAL SINUS RHYTHM NORMAL ECG WHEN COMPARED WITH ECG OF 15-FEB-2017 17:41, NO SIGNIFICANT CHANGE WAS FOUND Confirmed by Olivia Laughlin ([id number]) on 09/09/2018 4:34:53 PM Referred By: Confirmed By:Olivia Laughlin
== END 2018-09-09 05:47 | disposition home or self-care (01) ==
LOC: JER 01:50
PROC: 3E033NZ Introduction of Analgesics, Hypnotics, Sedatives into Peripheral Vein, Percutaneous Approach (ICD-10-PCS; principal; 2018-09-09)
DX: R56.9 Unspecified convulsions (principal); R56.1 Post traumatic seizures; F12.20 Cannabis dependence, uncomplicated; F16.10 Hallucinogen abuse, uncomplicated; R50.9 Fever, unspecified
CPT/HCPCS: 36415; 71045-TC-FY; 80053; 80307; 81003; 82550; 82553; 82803; 83605; 84484; 85025; 85610; 85730; 87040; 87804; 93005; 93010; 99282-25; J0131

== ENCOUNTER 2018-12-15 19:37 | Emergency (ER) | payer OTHER ==
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
[2018-12-15] MEDS ORDERED: ACETAMINOPHEN 325 MG TABLET (FP) PO ONE (20:09)
[2018-12-15 20:12] VITALS: BP 99/52; PULSE 70; TEMP 99; BMI 58.6
[2018-12-15] MEDS ORDERED: ACETAMINOPHEN 325 MG TABLET (FP) ONE (20:18)
[2018-12-15] MEDS ORDERED: SODIUM CHLORIDE 500 ML IV STA (20:30)
--- NOTE | 2018-12-16 01:55 | PDOC ---
Documentation entered by Lizeth Wade SCRIBE, acting as scribe for Sandra Wan MD. Sandra Wan MD: This documentation has been prepared by the Mauro figueredo Adrianna, SCRIBE, under my direction and personally reviewed by me in its entirety. I confirm that the documentation accurately reflects all work, treatment, procedures, and medical decision making performed by me. Attending Attestation - Resident Resident Name: Soraya Monroe - Medical Decision Making 12/15/18 21:25 Pt eloped prior to my evaluation.
== END 2018-12-15 21:25 | disposition left against medical advice (07) ==
LOC: JER 19:37
DX: S09.8XXA Other specified injuries of head, initial encounter (principal); M25.522 Pain in left elbow; M25.521 Pain in right elbow; V18.0XXA Pedal cycle driver injured in noncollision transport accident in nontraffic accident, initial encounter; Y92.488 Other paved roadways as the place of occurrence of the external cause; Y93.55 Activity, bike riding; Y99.8 Other external cause status; J45.909 Unspecified asthma, uncomplicated; F10.10 Alcohol abuse, uncomplicated; F12.10 Cannabis abuse, uncomplicated; F16.10 Hallucinogen abuse, uncomplicated; F31.9 Bipolar disorder, unspecified; Z86.69 Personal history of other diseases of the nervous system and sense organs
CPT/HCPCS: 99281-25

== ENCOUNTER 2020-04-21 06:46 | Emergency (ER) | payer OTHER ==
[2020-04-21 07:14] VITALS: BP 106/73; PULSE 64; TEMP 98.2; BMI 30.4
--- NOTE | 2020-04-21 07:23 | PDOC ---
History of Present Illness - General Chief Complaint: Pain Stated Complaint: PAIN Time Seen by Provider: 04/21/20 07:20 - History of Present Illness Initial Comments: HPI Pt is a 40yo M with PMH seizure disorder, substance abuse (marijuana) who presents with LLQ abdominal pain. Pt has had similar pain since December; went to [facility] in January and was told to have appendicitis - had appendectomy with improve ment for about 1 week. Has been to his PCP - Dr. Jang - multiple times for similar pain and was given Toradol IM, with improvement; had followup CT w/PO contrast 1 month prior to today that was normal; had LLQ and testicular US this past Tuesday. States that today pain is worse - 9/10 on arrival, currently 7/10. States pain feels like tugging with radiation to L testicle, unchanged in quality from previous, intermittent, worse with movement, improved with Tylenol, Toradol. States that he has taken 1-2 Percocets during this time with improvement in symptoms. Today's episode of LLQ pain preceded by intermittent sharp L lateral wall chest pain that was resolved by "pounding on his chest." Reports associated lightheadedness with standing. Reports regular bowel movements, flatus; denies f/c, n/v, palpitations, SOB PCP: Suhail PMH: see above Meds: depakote Allergies: NKDA Social: smokes 3 cigarettes/day, reports occasional etoh use, states that he stopped using marijuana prior to appendectomy Review of Systems CONSTITUTIONAL: denies fever, chills, diaphoresis, generalized weakness, loss of appetite HEENT: denies rhinorrhea, nasal congestion, sore throat, ear pain, eye pain, visual changes CARDIOVASCULAR: reports chest pain (resolved), lightheadedness; denies syncope, palpitations, peripheral edema RESPIRATORY: denies cough, shortness of breath, wheezing, hemoptysis GASTROINTESTINAL: reports abdominal pain; denies nausea, vomiting, diarrhea, constipation, melena, hematochezia GENITOURINARY: denies dysuria, frequency, urgency, hematuria, flank pain, g enital pain MUSCULOSKELETAL: denies myalgia, arthralgia HEMATOLOGIC/IMMUNOLOGIC: denies easy bleeding, easy bruising ENDOCRINE: denies unexplained weight gain, unexplained weight loss NEUROLOGIC: denies headache, loss of consciousness, focal weakness or paresthesias, dizziness SKIN: denies rash, itching, pallor Physical Exam General: awake, alert, fully oriented, in no acute distress, well developed, well nourished Head: normocephalic, atraumatic Eyes: PERRL, anicteric sclera, conjunctiva clear ENT: hearing grossly normal, oropharynx clear without exudates, moist mucous membranes Neck: supple, normal ROM Lung: equal breath sounds b/l, CTA b/l, no crackles, wheezes; no distress, speaks full sentences Heart: RRR, normal S1, S2, no murmurs appreciated Abdomen: soft, TTP in LLQ, normoactive bowel sounds, no guarding, rebound, masses Extremities: no edema, no erythema or tenderness, DP/PT pulses 2+ and symmetric Neuro: CN2-12 grossly intact, moves all extremities, normal speech, normal gait, sensation intact Skin: warm, dry, normal skin turgor, capillary refill <2 seconds, no rashes or lesions noted Testicular exam: No penile discharge or lesions. No scrotal swelling or discoloration. Testes descended bilaterally, smooth, no masses. Epididymis nontender. No inguinal or femoral hernias. [facility] Pt is a 40yo M with PMH seizure disorder, substance abuse (marijuana) who presents with LLQ abdominal pain. Vitals WNL DDx including but not limited to: testicular pathology, diverticulitis Workup: CBC, CMP, UA, US TX: IV fluids, Ofirmev, Toradol Labs: no leukocytosis, no anemia, electrolytes WNL, no PRECIOUS, LFT WNL UA: -LE, -nitrite Reports improvement with Toradol, tylenol, and lidocaine patch - states that he was able to fall asleep pain free while getting his ultrasound US: right 6mm epididymal head cyst and minimal left sided hydrocele. no evidence of testicular torsion or acute pathology - patient given copy of US report, has f/u appt with PCP on tuesday Re-assessment: Patient stable for discharge. pain controlled. Informed of all lab and imaging results. Given follow up instructions and strict return precautions. Patient expressed understanding and agree to plan Disposition: Discharge Past History - Medical History Allergies/Adverse Reactions: Allergies Allergy/AdvReac Type Severity Reaction Status Date / Time No Known Allergies Allergy Verified 04/21/20 07:07 Home Medications: Ambulatory Orders Divalproex *ER* [Depakote *ER* -] 500 mg PO BID 02/15/17 Anemia: No Asthma: Yes (on albuterol inhaler) Cancer: No Cardiac Disorders: No CVA: No COPD: No CHF: No Dementia: No Diabetes: No GI Disorders: No Disorders: No HTN: No Hypercholesterolemia: No Kidney Stones: No Liver Disease: No Psychiatric Problems: Yes (bipolar depression) Seizures: Yes (last 11/22) Thyroid Disease: No - Surgical History Abdominal Surgery: Yes (GROWTH REMOVED left lumbal are) Appendectomy: Yes GI Surgery: Yes (piece of intestine) - Reproductive History Testicular Surgery: No - Immunization History Immunization Up to Date: Yes - Psycho-Social/Smoking History Smoking Status: Yes Smoking History: Current every day smoker Have you smoked in the past 12 months: Yes Number of Cigarettes Smoked Daily: 3 Cigars Per Day: 0 Information on smoking cessation initiated: No 'Breaking Loose' booklet given: 02/15/17 - Substance Abuse Hx (Audit-C & DAST Scrn) How often the patient has a drink containing alcohol: Never Score: In Men: 4 or > Positive; In Women: 3 or > Positive: 0 Screen Result (Pos requires Nsg. Audit-10AR): Negative In the last yr the pt used illegal drug/Rx for NonMed reason: No Score: Yes response is considered Positive: 0 Screen Result (Positive result requires Nsg. DAST-10): Negative *Physical Exam - Vital Signs Last Vital Signs Temp Pulse Resp BP Pulse Ox 98.2 F 64 18 106/73 97 04/21/20 07:02 04/21/20 07:02 04/21/20 07:02 04/21/20 07:02 04/21/20 07:02 ED Treatment Course - LABORATORY CBC & Chemistry Diagram: 04/21/20 08:25 04/21/20 08:25 Discharge - Discharge Information Problems reviewed: Yes Clinical Impression/Diagnosis: Abdominal pain Qualifiers: Abdominal location: left lower quadrant Qualified Code(s): R10.32 - Left lower quadrant pain Condition: Stable Disposition: HOME - Follow up/Referral Referrals: Jc Jang [Primary Care Provider] - - Patient Discharge Instructions Patient Printed Discharge Instructions: DI for Abdominal Pain-Adult Additional Instructions: You were seen in the emergency department for left lower abdominal pain. In the ED, you were evaluated with blood work and ultrasound. Your blood work and ultrasound were normal. We gave you Toradol, tylenol, and a lidocaine patch, with which you stated you felt better. You do not appear to be an acute need for immediate hospitalization. You should remove your lidocaine patch tonight by 9pm. You were advised to follow up with your primary care doctor within 1 week. Use ibuprofen (Advil or Motrin) 400mg or acetaminophen (Tylenol) 650mg every 6 hours as needed for pain. These may be alternated every 3 hours if needed for severe pain. You can also buy lidocaine patches over the counter and apply to your lower abdomen as directed on the package instructions. Come back to the ER immediately with any new or worsening concerns, such as high fevers, inability to have a bowel movement or pass gas, unable to eat or drink, or if you have severe pain. Thank you for coming to the [facility] ER. We hope you feel better soon! - Post Discharge Activity
--- NOTE | 2020-04-21 07:24 | PDOC ---
Attending Attestation - Resident Resident Name: Urvashi Ramireza - ED Attending Attestation I have performed the following: I have examined & evaluated the patient, The case was reviewed & discussed with the resident, I agree w/resident's findings & plan, Exceptions are as noted - HPI HPI: 04/21/20 07:22 40y M presents with complaint of abdominal pain and chest pain. Pt notes freeuent LLQ pain for the past few months and last night. Pt notes his LLQ pain is intermittent is in his LLQ and radiaes down his groin, worse when he is wakling and mostly when he is tryig to sleep particularly when he is tossing and turning. It also is worse when he bears down and when he coughs, but denies any hernias/associated masses. He denies any fever/chills, nv, sob, grace, hemoptysis, leg swelling. Pt does endorse an episode of cp when he woke up last night that was lasting seconds, where he would hit himself on the chest to resolve the pain. Denies prior hx of cp in the past. denies any hematuria, dysuria, bpr/melena. Pt has had an extensive workup as an outpatient including multiple CTs, US, surgicla/gu consultations without a cause of his pain. PMD: Dr. Jang - Physicial Exam PE: 04/21/20 08:32 GENERAL: The patient is awake, alert, and fully oriented, Nontoxic - in no acute distress. HEAD: Normocephalic, atraumatic. EYES: extraocular movements intact, sclera anicteric, conjunctiva clear. ENT: Normal voice, Moist mucous membranes. NECK: Normal range of motion, supple LUNGS: Breath sounds equal, clear to auscultation bilaterally. No wheezes, no rhonchi, no rales. HEART: Regular rate and rhythm, normal S1 and S2 without murmur, rub or gallop. ABDOMEN: mild LLQ tenderness, no rebound/guarding, no rashes, no cva tenderness, neg mcburneys EXTREMITIES: tenderness in LLQ/L hip flexors NEUROLOGICAL: No facial assymetry, Normal speech, PSYCH: Normal mood, normal affect. SKIN: Warm, Dry, normal turgor, - Medical Decision Making 04/21/20 08:34 suspect msk cause due to worsening of pain with movement/position and extensive negative outpatient workup will ck ua, lbas will give toradol/lidoderm patch will recommend rest / pmd fu 04/21/20 10:27 pt sblood work unremarkable pt feeling singificantly improved. scrotal US results reviewed - dont think the hdyroceole is the cause of his discomfort as his scrotal exam showed no tenderness with intact cremesteric re flex. will dc with outpatient fu return precautions were discussed Heart Score/ECG Review - ECG Impressions Comment:: 04/21/20 09:02 Twelve-lead EKG was performed and reviewed by me. There is normal sinus rhythm with a rate of 44 The axis is normal. The intervals are normal. There is normal R wave progression There are no ST or T wave abnormalities. Impression: sinus bradycardia Discharge - Discharge Information Problems reviewed: Yes Clinical Impression/Diagnosis: Abdominal pain Qualifiers: Abdominal location: left lower quadrant Qualified Code(s): R10.32 - Left lower quadrant pain Condition: Stable Disposition: HOME - Follow up/Referral Referrals: Jc Jang [Primary Care Provider] - - Patient Discharge Instructions Patient Printed Discharge Instructions: DI for Abdominal Pain-Adult Additional Instructions: You were seen in the emergency department for left lower abdominal pain. In the ED, you were evaluated with blood work and ultrasound. Your blood work and ultrasound were normal. We gave you Toradol, tylenol, and a lidocaine patch, with which you stated you felt better. You do not appear to be an acute need for immediate hospitalization. You should remove your lidocaine patch tonight by 9pm. You were advised to follow up with your primary care doctor within 1 week. Use ibuprofen (Advil or Motrin) 400mg or acetaminophen (Tylenol) 650mg every 6 hours as needed for pain. These may be alternated every 3 hours if needed for severe pain. You can also buy lidocaine patches over the counter and apply to your lower abdomen as directed on the package instructions. Come back to the ER immediately with any new or worsening concerns, such as high fevers, inability to have a bowel movement or pass gas, unable to eat or drink, or if you have severe pain. Thank you for coming to the [facility] ER. We hope you feel better soon! - Post Discharge Activity
[2020-04-21] MEDS ORDERED: ACETAMINOPHEN 1000 MG/100 ML VIAL (NON FORMULARY) IVPB ONE (08:13)
[2020-04-21] MEDS ORDERED: SODIUM CHLORIDE 0.9% 500 ML INFUS.BAG IV ONE ×2 (08:13→08:14)
[2020-04-21] MEDS ORDERED: LIDOCAINE 5% TOPICAL PATCH TP ONE (08:22)
[2020-04-21] MEDS ORDERED: KETOROLAC TROMETHAMINE 15 MG/ML VIAL IVPUSH ONE (08:45)
[2020-04-21] MEDS ORDERED: ACETAMINOPHEN INJECTION 100 ML IVPB ONE (08:51)
[2020-04-21] MEDS ORDERED: LIDOCAINE 5% TOPICAL PATCH ONE (08:51)
[2020-04-21] MEDS ORDERED: KETOROLAC TROMETHAMINE 30 MG/1 ML VIAL ONE (08:52)
[2020-04-21] MEDS: KETOROLAC TROMETHAMINE 30 MG/1 ML VIAL IM ONE ×2 (09:03→09:04)
[2020-04-21 09:07] LABS: BASO % 0.4 % (0-2.0); EOS % 1.9 % (0-4.5); HEMOGLOBIN 15.2 GM/dL (11.7-16.9); LYMPH % 26.1 % (8-40); MCH 30.4 pg (25.7-33.7); MCHC 33.8 g/dl (32.0-35.9); MEAN CELL VOLUME 90.1 fl (80-96); MEAN PLT VOLUME 8.3 fl (7.5-11.1); MONO % 7.1 % (3.8-10.2); NEUT % 64.5 % (42.8-82.8); PLATELET COUNT 242 K/MM3 (134-434); RBC 4.99 M/mm3 (4.00-5.60); RDW 14.4 % (11.9-15.9); WHITE BLOOD COUNT 9.6 K/mm3 (4.0-10.0)
[2020-04-21 09:08] LABS: URINE APPEARANCE CLEAR; URINE BILIRUBIN NEGATIVE (NEGATIVE); URINE COLOR YELLOW; URINE GLUCOSE (UA) NEGATIVE (NEGATIVE); URINE KETONE NEGATIVE (NEGATIVE); URINE LEUK ESTERASE NEGATIVE (NEGATIVE); URINE NITRITE NEGATIVE (NEGATIVE); URINE PROTEIN NEGATIVE (NEGATIVE); URINE UROBILINOGEN 0.2 mg/dL (0.2-1.0)
[2020-04-21 09:31] LABS: ALBUMIN 3.9 g/dl (3.4-5.0); BILIRUBIN,TOTAL 0.7 mg/dL (0.2-1); BLOOD UREA NITROGEN 12.7 mg/dL (7-18); CALCIUM 9.4 mg/dL (8.5-10.1); CREATININE 0.8 mg/dL (0.55-1.3); POTASSIUM 4.1 mmol/L (3.5-5.1); TOT PROT 8.2 g/dl (6.4-8.2)
[2020-04-21] MEDS ORDERED: LIDOCAINE PATCH REMOVAL MC SCH (22:00)
== END 2020-04-21 10:50 | disposition home or self-care (01) ==
LOC: JER 06:46
PROC: 3E0333Z Introduction of Anti-inflammatory into Peripheral Vein, Percutaneous Approach (ICD-10-PCS; principal; 2020-04-21)
PROC: 3E033GC Introduction of Other Therapeutic Substance into Peripheral Vein, Percutaneous Approach (ICD-10-PCS; 2020-04-21)
DX: R10.32 Left lower quadrant pain (principal)
CPT/HCPCS: 36415; 76870-TC; 80053; 81003; 85025; 99285-25; J0131

== ENCOUNTER 2021-09-29 07:43 | Emergency (ER) | payer OTHER ==
[2021-09-29 08:12] VITALS: BP 112/66; PULSE 65; TEMP 97.9; BMI 29.9
[2021-09-29 09:16] LABS: PH,URINE 6.5 (5.0-8.0); URINE APPEARANCE CLEAR; URINE BILIRUBIN NEGATIVE (NEGATIVE); URINE COLOR YELLOW; URINE GLUCOSE (UA) NEGATIVE (NEGATIVE); URINE KETONE TRACE (NEGATIVE); URINE LEUK ESTERASE NEGATIVE (NEGATIVE); URINE NITRITE NEGATIVE (NEGATIVE); URINE PROTEIN NEGATIVE (NEGATIVE); URINE UROBILINOGEN 0.2 mg/dL (0.2-1.0)
== END 2021-09-29 08:58 | disposition home or self-care (01) ==
LOC: JER 07:43
DX: R10.2 Pelvic and perineal pain (principal)
CPT/HCPCS: 36415; 81003; 87086; 87491; 87591; 99283-25

== ENCOUNTER 2023-11-09 02:26 | Emergency (ER) | payer OTHER ==
[2023-11-09] MEDS ORDERED: predniSONE 10 MG TABLET (UD) ONE (03:26)
[2023-11-09] MEDS: predniSONE 10 MG TABLET (UD) PO ONE (03:30)
[2023-11-09 03:59] VITALS: BP 111/70; PULSE 57; RESP 18; TEMP 98.6; BMI 29.2
== END 2023-11-09 03:40 | disposition home or self-care (01) ==
LOC: JER 02:26
DX: R21 Rash and other nonspecific skin eruption (principal); L50.9 Urticaria, unspecified
CPT/HCPCS: 99283-25

== ENCOUNTER 2023-12-06 12:14 | Emergency (ER) | payer OTHER ==
[2023-12-06 12:29] VITALS: RESP 17; TEMP 98.4; BMI 29.2
[2023-12-06] MEDS ORDERED: ALBUTEROL SO4 2.5/IPRATROPIUM 0.5 INH SOL 3 ML VIAL.NEB. NEB ONE (14:08)
[2023-12-06] MEDS ORDERED: ACETAMINOPHEN INJECTION 100 ML IVPB ONE (14:08)
[2023-12-06] MEDS: ACETAMINOPHEN 1000 MG/100 ML BAG IVPB ONE (14:15)
[2023-12-06] MEDS: ALBUTEROL SO4 2.5/IPRATROPIUM 0.5 INH SOL 3 ML VIAL.NEB. NEB ONE (14:16)
[2023-12-06 14:34] LABS: BASO % 0.4 % (0-2.0); EOS % 0.4 % (0-4.5); HEMATOCRIT 45.4 % (35.4-49); HEMOGLOBIN 15.1 GM/dL (11.7-16.9); LYMPH % 18.7 % (8-40); MCH 29.8 pg (25.7-33.7); MCHC 33.3 g/dl (32.0-35.9); MEAN CELL VOLUME 89.7 fl (80-96); MEAN PLT VOLUME 8.3 fl (7.5-11.1); MONO % 5.9 % (3.8-10.2); NEUT % 74.6 % (42.8-82.8); PLATELET COUNT 262 10^3/uL (134-434); RBC 5.07 M/mm3 (4.00-5.60); RDW 13.8 % (11.9-15.9); WHITE BLOOD COUNT 13.1 K/mm3 (4.0-10.0)
[2023-12-06 14:42] LABS: INR 1.13 (0.83-1.09); PROTHROMBIN TIME (PATIENT) 12.7 SEC (9.7-13.0)
[2023-12-06 14:45] LABS: ACTIVATED PTT 31.2 SECONDS (25.2-36.5)
[2023-12-06 14:57] LABS: ALBUMIN 3.8 g/dl (3.4-5.0); BLOOD UREA NITROGEN 16.4 mg/dL (7-18); CALCIUM 9.8 mg/dL (8.5-10.1)
[2023-12-06 15:02] LABS: BILIRUBIN,TOTAL 1.5 mg/dL (0.2-1)
[2023-12-06 15:05] LABS: CREATININE 1.1 mg/dL (0.55-1.3)
[2023-12-06 16:36] VITALS: BP 101/58; PULSE 53
== END 2023-12-06 17:10 | disposition home or self-care (01) ==
LOC: JER 12:14
PROC: 3E030NZ Introduction of Analgesics, Hypnotics, Sedatives into Peripheral Vein, Open Approach (ICD-10-PCS; principal; 2023-12-06)
PROC: 3E0F7GC Introduction of Other Therapeutic Substance into Respiratory Tract, Via Natural or Artificial Opening (ICD-10-PCS; 2023-12-06)
DX: R07.9 Chest pain, unspecified (principal); R20.0 Anesthesia of skin; R20.2 Paresthesia of skin; R00.2 Palpitations; R06.02 Shortness of breath; R05.9 Cough, unspecified; R09.81 Nasal congestion; Z20.822 Contact with and (suspected) exposure to COVID-19
CPT/HCPCS: 0241U-QW; 36415; 71046-TC-FY; 80053; 84484; 85025; 85610; 85730; 93005; 93010; 99285-25; J0131

== ENCOUNTER 2023-12-08 11:18 | Emergency (ER) | payer OTHER ==
[2023-12-08 11:29] VITALS: BP 128/80; PULSE 84; RESP 18; TEMP 97.8; BMI 29.5
== END 2023-12-08 11:47 | disposition left against medical advice (07) ==
LOC: JER 11:18
DX: R07.9 Chest pain, unspecified (principal)
CPT/HCPCS: 93005; 93010; 99283-25

== ENCOUNTER 2024-01-11 21:16 | Emergency (ER) | payer OTHER ==
[2024-01-11 21:19] VITALS: BP 112/69; PULSE 64; RESP 18; TEMP 98.7; BMI 29.5
[2024-01-11] MEDS ORDERED: ACETAMINOPHEN 500 MG TABLET (FP) ONE (22:38)
[2024-01-11] MEDS: ACETAMINOPHEN 500 MG TABLET (FP) PO ONE (22:41)
== END 2024-01-12 01:28 | disposition left against medical advice (07) ==
LOC: JER 21:16
DX: S05.11XA Contusion of eyeball and orbital tissues, right eye, initial encounter (principal); S05.12XA Contusion of eyeball and orbital tissues, left eye, initial encounter; J34.89 Other specified disorders of nose and nasal sinuses; R68.84 Jaw pain; M25.522 Pain in left elbow; R55 Syncope and collapse; Y04.8XXA Assault by other bodily force, initial encounter
CPT/HCPCS: 70450-TC; 70486-TC; 71046-TC-FY; 72125-TC; 73070-TC-LT-FY; 99284-25

== ENCOUNTER 2024-05-16 08:46 | Emergency (ER) | payer OTHER ==
[2024-05-16 09:07] VITALS: BP 113/87; PULSE 56; RESP 18; TEMP 98.4; BMI 30.4
[2024-05-16] MEDS ORDERED: DIVALPROEX SODIUM 250 MG TABLET E.C. ONE (09:34)
[2024-05-16] MEDS ORDERED: ACETAMINOPHEN 500 MG TABLET (FP) ONE (09:35)
[2024-05-16] MEDS: ACETAMINOPHEN 500 MG TABLET (FP) PO ONE (09:53)
[2024-05-16] MEDS: DIVALPROEX SODIUM 500 MG TABLET E.C. PO ONE (09:53)
[2024-05-16] MEDS ORDERED: IBUPROFEN 400 MG TABLET (FP) PO ONE (11:11)
[2024-05-16] MEDS: IBUPROFEN 600 MG TABLET (FP) PO ONE (11:13)
== END 2024-05-16 11:14 | disposition home or self-care (01) ==
LOC: JER 08:46
PROC: 0XQCXZZ Repair Left Elbow Region, External Approach (ICD-10-PCS; principal; 2024-05-16)
DX: S51.012A Laceration without foreign body of left elbow, initial encounter (principal); S70.212A Abrasion, left hip, initial encounter; S80.211A Abrasion, right knee, initial encounter; M79.605 Pain in left leg; M54.50 Low back pain, unspecified; V23.41XA Electric (assisted) bicycle driver injured in collision with car, pick-up truck or van in traffic accident, initial encounter; Y92.410 Unspecified street and highway as the place of occurrence of the external cause
CPT/HCPCS: 70450-TC; 71046-TC-FY; 72125-TC; 72170-TC-FY; 73070-TC-LT-FY; 73502-TC-LT-FY; 73562-TC-RT-FY; 73610-TC-LT-FY; 73630-TC-LT; 99284-25

== ENCOUNTER 2025-05-12 17:33 | Emergency (ER) | payer OTHER ==
[2025-05-12 17:50] VITALS: RESP 20; TEMP 98.1; BMI 29.5
[2025-05-12 18:08] VITALS: BP 107/75; PULSE 51
[2025-05-12 18:41] LABS: ABSOLUTE IMMATURE GRANULOCYTES 0.05 x10^3/uL (0.0-0.031); BASOPHILS # 0.03 x10^3/uL (0.01-0.08); EOSINOPHIL % 0.3 % (0.8-7.0); EOSINOPHILS # 0.04 x10^3/uL (0.04-0.54); MCHC 32.8 g/dl (32.3-36.5); MEAN CELL VOLUME 90.6 fl (79.0-92.2); MEAN PLT VOLUME 9.6 fl (9.4-12.4); MONOCYTE # 0.80 x10^3/uL (0.30-0.82); MONOCYTE % 6.5 % (5.3-12.2); RDW 14.7 % (12.1-15.9)
[2025-05-12 20:10] LABS: GLUCOSE,RANDOM 94.0 mg/dL (74-106); TOT PROT 6.5 g/dl (6.4-8.2)
[2025-05-12 20:11] LABS: CO2 23.0 mmol/L (21-32)
[2025-05-12 20:13] LABS: ALK PHOS 64.0 U/L (40-150)
[2025-05-12 20:15] LABS: SGOT/AST 26.0 U/L (5-34); SGPT/ALT 22.0 U/L (0-55)
[2025-05-12 20:16] LABS: CREATININE 0.9 mg/dL (0.55-1.3)
== END 2025-05-12 20:35 | disposition left against medical advice (07) ==
LOC: JER 17:33
DX: R07.9 Chest pain, unspecified (principal); R06.02 Shortness of breath
CPT/HCPCS: 36415; 71045-TC-FY; 80053; 83735; 84484; 85025; 93005; 93010; 99285-25